=== PATIENT | female | born 1985 | race Caucasian/White ===

== ENCOUNTER 2024-04-20 23:53 | Emergency (ER) | payer OTHER, SELFPAY ==
[2024-04-20 23:58] VITALS: BP 121/81; PULSE 87; RESP 16; TEMP 36.6; O2SAT 100; BMI 25.7
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
[2024-04-21 01:57] VITALS: BP 109/87; PULSE 80; RESP 16; O2SAT 98
[2024-04-21] MEDS: Acetaminophen 500 MG Tablet 1000 MG PO (02:22)
[2024-04-21 03:00] VITALS: BP 108/83; PULSE 87; RESP 16; O2SAT 98
[2024-04-21 03:05] VITALS: BP 108/83; PULSE 81; RESP 18; O2SAT 99
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
[2024-04-21 03:53] VITALS: BP 120/86; PULSE 79; RESP 18; TEMP 36.7; O2SAT 99
== END 2024-04-21 03:56 | disposition home or self-care (01) ==
PROVIDERS: Emergency Provider Emergency Medicine; Visit Provider Emergency Medicine
DX: S06.0X9A Concussion with loss of consciousness of unspecified duration, initial encounter (principal); T14.8XXA Other injury of unspecified body region, initial encounter; V89.2XXA Person injured in unspecified motor-vehicle accident, traffic, initial encounter; M54.9 Dorsalgia, unspecified; M79.604 Pain in right leg; M25.522 Pain in left elbow
CPT/HCPCS: 70450; 72072; 72125; 73080; 73552; 99284